=== PATIENT | male | born 1940 | race Caucasian/White ===

== ENCOUNTER 2018-07-31 22:56 | Inpatient (IN) | payer OTHER ==
[~2018-07-31] VITALS: Ht 170.2 cm; Wt 77.1 kg
== END 2018-08-18 04:00 | disposition expired | DRG 190 ==
LOC: ER 22:56 → ICU 08-01 14:20 → SEC-K 08-01 14:20 → ICU-2 08-01 14:20 → SEC-K 08-08 10:51 → MEDI 08-08 22:00 → ICU 08-13 15:16
PROVIDERS: ADMIT Internal Medicine Cardiovascular Disease
PROC: B246ZZZ Ultrasonography of Right and Left Heart (ICD-10-PCS; principal; 2018-08-01)
PROC: BW24ZZZ Computerized Tomography (CT Scan) of Chest and Abdomen (ICD-10-PCS; 2018-08-01)
PROC: 4A033R1 Measurement of Arterial Saturation, Peripheral, Percutaneous Approach (ICD-10-PCS; 2018-08-01)
PROC: 3E0F7GC Introduction of Other Therapeutic Substance into Respiratory Tract, Via Natural or Artificial Opening (ICD-10-PCS; 2018-08-01)
PROC: BW28YZZ Computerized Tomography (CT Scan) of Head using Other Contrast (ICD-10-PCS; 2018-08-09)
PROC: 4A12X4Z Monitoring of Cardiac Electrical Activity, External Approach (ICD-10-PCS; 2018-08-09)
PROC: 0T9B70Z Drainage of Bladder with Drainage Device, Via Natural or Artificial Opening (ICD-10-PCS; 2018-08-13)
PROC: 5A09357 Assistance with Respiratory Ventilation, Less than 24 Consecutive Hours, Continuous Positive Airway Pressure (ICD-10-PCS; 2018-08-17)
DX: J44.1 Chronic obstructive pulmonary disease with (acute) exacerbation (principal); J96.01 Acute respiratory failure with hypoxia; F05 Delirium due to known physiological condition; I10 Essential (primary) hypertension; M13.89 Other specified arthritis, multiple sites; Z87.891 Personal history of nicotine dependence; R91.8 Other nonspecific abnormal finding of lung field; F06.31 Mood disorder due to known physiological condition with depressive features